=== PATIENT | male | born 1960 | race Caucasian/White ===

== ENCOUNTER 2018-10-05 14:03 | Emergency (ER) | payer MEDICAID ==
[~2018-10-05] VITALS: Wt 99.7 kg
--- NOTE | 2018-10-05 17:42 | ERD ---
ER Documentation Chief Complaint Chief Complaint PICC LINE REMOVAL, TX COMPLETED 0N 09/20 FOR OSTEO, REFILL OF METFORMIN HPI 58-year-old male presents for request for PICC line removal. 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 Also requesting a refill of his metformin. Denies any fevers, vomiting, shortness breath, discharge is otherwise has no symptoms. He states that he takes 500 mg twice a day of metformin. ROS All systems reviewed and are negative except as per history of present illness. PMhx/Soc Medical and Surgical Hx: pt denies Medical Hx, pt denies Surgical Hx History of Surgery: No Anesthesia Reaction: No Hx Neurological Disorder: No Hx Respiratory Disorders: No Hx Cardiac Disorders: No Hx Psychiatric Problems: No Hx Miscellaneous Medical Probl: No Hx Alcohol Use: No Hx Substance Use: No Hx Tobacco Use: No Smoking Status: Never smoker FmHx Family History: No diabetes, No coronary disease, No other Physical Exam Vitals Vital Signs Date Temp Pulse Resp B/P (MAP) Pulse Ox O2 O2 Flow FiO2 Time Delivery Rate 10/05/18 98.4 97 18 118/61 99 14:07 (80) Physical Exam Const: No acute distress Head: Atraumatic Eyes: Normal Conjunctiva ENT: Normal External Ears, Nose and Mouth. Neck: Full range of motion. No meningismus. Resp: Clear to auscultation bilaterally Cardio: Regular rate and rhythm, no murmurs Abd: Soft, non tender, non distended. Normal bowel sounds Skin: No petechiae or rashes Back: No midline or flank tenderness Ext: No cyanosis, or edema. PICC line in place left antecubital fossa without erythema, swelling, streaking, discharge or bleeding. Neur: Awake and alert Psych: Normal Mood and Affect Procedures/MDM PICC line removed without complications. Wound was dressed. Patient presents status post treatment of optic myelitis with current symptoms are SIRS criteria or significant concerning signs or symptoms. He was given a refill of his Glucophage recommendations for primary care follow-up as well as follow-up for his osteomyelitis. He is advised to return for redness, fevers, new or worsening symptoms. No evidence of thrombosis, ischemia, infection currently. The patient was stable with no new complaints during the ER course. Clinically, there is no current evidence to suggest meningitis, sepsis, acute abdomen, pneumonia, stroke, acute coronary syndrome, pulmonary embolism, aortic dissection or any other emergent condition appearing to require further evaluation or hospitalization. Patient counseled regarding my diagnostic impression and care plan. Prior to discharge all questions answered. Pt agrees with treatment plan and understands strict return precautions. Pt is instructed to follow up with primary care provider within 24-48 hours. Precautionary instructions provided including instructions to return to the ER if not improving or for any worsening or changing symptoms or concerns. Disclaimer: Inadvertent spelling and grammatical errors are likely due to EHR/dictation software use and do not reflect on the overall quality of patient care. Also, please note that the electronic time recorded on this note does not necessarily reflect the actual time of the patient encounter. Departure Diagnosis: Primary Impression: PIC line (peripherally inserted central catheter) removal Condition: Stable Patient Instructions: Picc Line Care Additional Instructions: Examines normal hoy. Cheque otro vez con [place] doctor primario en el proximo segal or regresa para mas o nueva simptomas- robert longo, . PHILIP MULLER MD October 05, 2018 17:42
[2018-10-05] MEDS ORDERED: METF-849 PO (18:00)
== END 2018-10-05 18:06 | disposition home or self-care (01) ==
LOC: FTE 14:03
DX: Z45.2 Encounter for adjustment and management of vascular access device (principal); Z79.84 Long term (current) use of oral hypoglycemic drugs
CPT/HCPCS: 99281